=== PATIENT | female | born 1990 | race Caucasian/White ===

== ENCOUNTER 2016-11-02 21:18 | Emergency (ER) | payer OTHER ==
[2016-11-02 21:48] VITALS: BP 126/74; PULSE 84; TEMP 98.3; BMI 29.2
[2016-11-03] MEDS ORDERED: IBUPROFEN 600 MG TABLET (FP) PO ONE (00:09)
[2016-11-03] MEDS ORDERED: IBUPROFEN 600 MG TABLET (FP) PO STA (00:19)
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
== END 2016-11-03 00:44 | disposition home or self-care (01) ==
LOC: JER 21:18
CPT/HCPCS: 99282-25

== ENCOUNTER 2017-03-27 08:26 | Emergency (ER) | payer OTHER ==
[2017-03-27 08:32] VITALS: BP 119/57; PULSE 107; TEMP 98.9; BMI 28.3
--- NOTE | 2017-03-27 09:00 | PDOC ---
History of Present Illness - General Chief Complaint: Respiratory Stated Complaint: CHEST PAIN Time Seen by Provider: 03/27/17 08:52 History Source: Patient Exam Limitations: No Limitations - History of Present Illness Initial Comments: 03/27/17 08:57 c/o cough and congestion worsening over the past 24 hours. States had fever this morning of 101.7, has runny nose, moist nonproductive cough, earache and body aches. Works as a central aisle cashier 03/27/17 09:11 Timing/Duration: reports: just prior to arrival, getting worse Severity: reports: mild, moderate Modifying Factors: improves with: albuterol nebulizer Associated Symptoms: reports: chest pain/soreness, cough, earache, fever/chills , nasal congestion Past History - Travel Traveled outside of the country in the last 30 days: No Close contact w/someone who was outside of country & ill: No - Past Medical History Allergies/Adverse Reactions: Allergies Allergy/AdvReac Type Severity Reaction Status Date / Time No Known Allergies Allergy Verified 03/27/17 08:31 Home Medications: Ambulatory Orders Acetaminophen [Tylenol -] 1,000 mg PO Q6H #30 tablet 01/27/16 Dicyclomine HCl [Bentyl] 20 mg PO BID PRN #20 tablet 01/27/16 Ibuprofen [Motrin -] 600 mg PO TID #30 tablet 01/27/16 Ondansetron HCl [Zofran] 4 mg PO TID PRN #21 tablet 01/27/16 Cyclobenzaprine HCl [Flexeril -] 10 mg PO HS #10 tablet 11/03/16 Oseltamivir Phosphate [Tamiflu -] 75 mg PO BID #10 capsule 03/27/17 Asthma: Yes COPD: No - Suicide/Smoking/Psychosocial Hx Smoking Status: Yes Smoking History: Current every day smoker Number of Cigarettes Smoked Daily: 2 Cigars Per Day: 0 Information on smoking cessation initiated: No Hx Alcohol Use: No Drug/Substance Use Hx: No Substance Use Type: None Respiratory Specific PMHX - Complaint Specific PMHX Bronchitis: No Pneumonia: No Review of Systems - Review of Systems Able to Perform ROS?: Yes Is the patient limited Uzbek proficient: Yes Constitutional: Yes: Symptoms Reported, See HPI, Fever, Malaise HEENTM: Yes: Symptoms Reported, See HPI, Nose Pain, Nose Congestion, Throat Pain Respiratory: Yes: Symptoms reported, See HPI, Cough. No: Wheezing : No: Symptoms Reported Musculoskeletal: Yes: Symptoms Reported, Muscle Pain, Joint Stiffness All Other Systems: Reviewed and Negative *Physical Exam - Vital Signs Last Vital Signs Temp Pulse Resp BP Pulse Ox 98.9 F 107 H 20 119/57 99 03/27/17 08:29 03/27/17 08:29 03/27/17 08:29 03/27/17 08:29 03/27/17 08:29 - Physical Exam General Appearance: Yes: Nourished, Appropriately Dressed, Apparent Distress, Mild Distress HEENT: positive: JOSE D (glassy ), Normal Voice, Pharyngeal Erythema, Rhinorrhea, Sinus Tenderness. negative: Normal ENT Inspection, TMs Normal (congested ), Tonsillar Exudate, Tonsillar Erythema Neck: positive: Supple, Lymphadenopathy (R), Lymphadenopathy (L) Respiratory/Chest: positive: Wheezing (faint but clear with cough). negative: Lungs Clear (course), Normal Breath Sounds, Respiratory Distress Gastrointestinal/Abdominal: positive: Soft. negative: Tender Musculoskeletal: positive: Normal Inspection Extremity: positive: Normal Capillary Refill, Normal Inspection, Normal Range of Motion Integumentary: positive: Dry, Warm, Pale Neurologic: positive: automation tender II-XII NML intact, Fully Oriented, Alert, Normal Mood/ Affect, Normal Response, Motor Strength 5/5 Progress Note - Progress Note Progress Note: Respiratory infection, probable influenza will treat with Tamiflu *DC/Admit/Observation/Transfer Diagnosis at time of Disposition: Influenzal acute upper respiratory infection - Discharge Dispostion Disposition: HOME Condition at time of disposition: Stable Admit: No - Referrals - Patient Instructions Printed Discharge Instructions: DI for Viral Upper Respiratory Infection -- Adult Additional Instructions: Rest, drink lots of fluids: Teas, water, soups, Pedialyte Saltwater gargles Steamy showers/seem to face break up mucus Old-fashioned treatments help! Avoid contact with others until fevers and cough resolved as this is very contagious Lots of handwashing and good hygiene Continue [id number] medications for symptomatic relief Tylenol or Motrin for fever and pain Take all of Tamiflu as directed: 1 tab every 12 hours for 5 days Followup with private physician in one to 2 days as needed or if worsening Return to emergency department for worsened symptoms, fevers, dehydration Influenza takes between 5 and 7 days for resolution To not participate in any activity, work, or school until fevers and cough are gone for at least one day - Post Discharge Activity Forms/Work/School Notes: Back to Work
== END 2017-03-27 09:25 | disposition home or self-care (01) ==
LOC: JERFT 08:26
DX: J11.1 Influenza due to unidentified influenza virus with other respiratory manifestations (principal)
CPT/HCPCS: 99281-25

== ENCOUNTER 2020-06-06 21:17 | Emergency (ER) | payer OTHER ==
[2020-06-06 21:23] VITALS: TEMP 98; BMI 30.1
[2020-06-06] MEDS ORDERED: MAG HYDROX/AL HYDROX/SIMETH -MYLANTA- ORAL SUSPENSION PO ONE (22:33)
[2020-06-06] MEDS ORDERED: FAMOTIDINE 20 MG TABLET PO ONE ×2 (22:33→22:38)
[2020-06-06] MEDS ORDERED: SODIUM CHLORIDE 1,000 ML IV STA ×2 (22:34→22:53)
[2020-06-06] MEDS ORDERED: FAMOTIDINE 20 MG/50 ML IVPB 20 MG/50 ML MG IVPB ONE (22:35)
[2020-06-06] MEDS ORDERED: MAG HYDROX/AL HYDROX/SIMETH 30 ML UNIT-DOSE CUP ONE (22:43)
[2020-06-06] MEDS ORDERED: FAMOTIDINE 20 MG TABLET ONE (22:43)
[2020-06-06 23:00] LABS: EPI CELLS 17 /uL (0-25.1); HYALINE CASTS 3 /uL (0-3.1); PH,URINE 5.5 (5.0-8.0); URINE APPEARANCE CLEAR; URINE BACTERIA 73 /uL (0-1359); URINE BILIRUBIN NEGATIVE (NEGATIVE); URINE COLOR YELLOW; URINE GLUCOSE (UA) NEGATIVE (NEGATIVE); URINE KETONE TRACE (NEGATIVE); URINE LEUK ESTERASE NEGATIVE (NEGATIVE); URINE NITRITE NEGATIVE (NEGATIVE); URINE PROTEIN NEGATIVE (NEGATIVE); URINE RBC 62 /uL (0-23.9); URINE WBC 49 /uL (0-25.8)
[2020-06-06 23:02] LABS: HCG,QUALITATIVE URINE Negative
[2020-06-07 00:14] LABS: BASO % 0.3 % (0-2.0); EOS % 1.7 % (0-4.5); HEMOGLOBIN 11.8 GM/dL (10.7-15.3); LYMPH % 19.3 % (8-40); MCHC 32.9 g/dl (32.0-36.0); MEAN CELL VOLUME 88.3 fl (80-96); MEAN PLT VOLUME 8.2 fl (7.5-11.1); MONO % 8.4 % (3.8-10.2); NEUT % 70.3 % (42.8-82.8); PLATELET COUNT 292 K/MM3 (134-434); RBC 4.07 M/mm3 (3.60-5.2); RDW 13.1 % (11.6-15.6)
[2020-06-07 01:00] LABS: POTASSIUM 4.2 mmol/L (3.5-5.1)
[2020-06-07 01:02] LABS: ALBUMIN 3.6 g/dl (3.4-5.0); CALCIUM 8.9 mg/dL (8.5-10.1)
[2020-06-07 01:03] LABS: BLOOD UREA NITROGEN 12.6 mg/dL (7-18)
[2020-06-07 01:05] LABS: CREATININE 0.7 mg/dL (0.55-1.3)
[2020-06-07 01:07] LABS: BILIRUBIN,TOTAL 0.2 mg/dL (0.2-1); TOT PROT 6.4 g/dl (6.4-8.2)
[2020-06-07 01:59] VITALS: BP 120/71; PULSE 82
== END 2020-06-07 02:00 | disposition home or self-care (01) ==
LOC: JER 21:17
PROC: 3E0337Z Introduction of Electrolytic and Water Balance Substance into Peripheral Vein, Percutaneous Approach (ICD-10-PCS; principal; 2020-06-06)
DX: R10.13 Epigastric pain (principal)
CPT/HCPCS: 36415; 80053; 81003; 83690; 84703; 85025; 87086; 99284-25

== ENCOUNTER 2023-01-31 10:39 | Emergency (ER) | payer OTHER ==
[2023-01-31 10:54] VITALS: BP 110/59; PULSE 88; RESP 18; TEMP 98.1; BMI 31.8
[2023-01-31] MEDS ORDERED: PSEUDOEPHEDRINE HCL 60 MG TABLET PO ONE (11:32)
[2023-01-31] MEDS ORDERED: ACETAMINOPHEN 325 MG TABLET (FP) PO ONE (11:32)
[2023-01-31] MEDS ORDERED: ACETAMINOPHEN 325 MG TABLET (FP) ONE (11:35)
[2023-01-31 11:52] LABS: THROAT:GRP A STREP NOT DETECTED (NOTDETECTED)
== END 2023-01-31 12:24 | disposition home or self-care (01) ==
LOC: JERFT 10:39
DX: J02.9 Acute pharyngitis, unspecified (principal); R05.9 Cough, unspecified; R09.81 Nasal congestion; R50.9 Fever, unspecified; M79.10 Myalgia, unspecified site; J39.2 Other diseases of pharynx; Z20.822 Contact with and (suspected) exposure to COVID-19
CPT/HCPCS: 0241U-QW; 87651; 99283-25